=== PATIENT | male | born 1975 | race Caucasian/White ===

== ENCOUNTER 2016-05-01 08:30 | Outpatient (CLI) | payer BC | END 2016-05-01 08:31 | disposition home or self-care (01) | DX: L02.91 Cutaneous abscess, unspecified (principal) ==

== ENCOUNTER 2016-06-27 11:40 | Outpatient (CLI) | payer BC | END 2016-06-27 11:41 | DX: E78.5 Hyperlipidemia, unspecified (principal); E11.9 Type 2 diabetes mellitus without complications; I10 Essential (primary) hypertension ==

== ENCOUNTER 2017-01-28 21:39 | Emergency (ER) | payer BC ==
[2017-01-28] MEDS ORDERED: CLINDAMYCIN 150 MG CAPSULE PO STA (21:55)
[2017-01-28] MEDS ORDERED: CLINDAMYCIN 150 MG CAPSULE PO ONE (22:07)
--- NOTE | 2017-01-28 22:12 | ED Physician Documentation ---
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 No fevers or chills.) Review of Systems Constitutional: denies: Fever, Chills GI: denies: Nausea, Vomiting, Diarrhea, Hematemesis : denies: Dysuria, Frequency Skin: denies: Rash, Lesions PD PAST MEDICAL HISTORY - Past Medical History Past Medical History: Yes Cardiovascular: Hypertension, High cholesterol, Coronary artery disease Respiratory: Sleep apnea Neuro: None Endocrine/Autoimmune: Type 2 diabetes GI: None : None HEENT: None Psych: Depression, Anxiety Musculoskeletal: Osteoarthritis Derm: None - Past Surgical History Past Surgical History: Yes Cardiovascular: Coronary stent - Present Medications Home Medications: Ambulatory Orders Medication Instructions Recorded Confirmed FLUoxetine [PROzac] 40 mg PO DAILY 05/28/13 03/01/15 Gemfibrozil 600 mg PO DAILY 05/28/13 03/01/15 Metformin HCl [Fortamet] 2,000 mg PO DAILY 05/28/13 03/01/15 Metoprolol Succinate 50 mg PO DAILY 05/28/13 03/01/15 raNITIdine [Zantac] 300 mg PO DAILY 05/28/13 03/01/15 glipiZIDE [Glucotrol] 5 mg PO DAILY 08/31/13 03/01/15 Aspirin [Aspir 81] 81 mg PO DAILYWM 12/22/13 03/01/15 Atorvastatin Calcium 40 mg PO DAILY 02/08/14 03/01/15 Canagliflozin [Invokana] 300 mg PO DAILY 02/08/14 03/01/15 Clopidogrel Bisulfate [Plavix] 75 mg PO DAILY 02/08/14 03/01/15 Losartan/Hydrochlorothiazide 1 each PO DAILY 02/08/14 03/01/15 [Hyzaar 100-25 Tablet] Potassium Gluconate 500 mg PO DAILY 02/08/14 03/01/15 Clotrimazole 1 applic TP BID #30 g 03/02/15 Clindamycin [Cleocin] 300 mg PO Q6H 10 Days capsule 01/28/17 - Allergies Allergies/Adverse Reactions: Allergies Allergy/AdvReac Type Severity Reaction Status Date / Time metaproterenol sulfate * AdvReac Severe Hives Verified 01/28/17 21:48 [From Alupent] - Social History Does the pt smoke?: No Smoking Status: Never smoker Does the pt drink ETOH?: Yes Does the pt have substance abuse?: No - Immunizations Immunizations are current?: No Immunizations: TDAP current <10years - POLST Patient has POLST: No PD ED PE NORMAL - Vitals Vital signs reviewed: Yes - General General: Alert and oriented X 3, No acute distress - Abdomen Abdomen: Soft, Non tender - Derm Derm: Normal color, Warm and dry, Other (There is a tiny pointed sebaceous cyst on the lateral lower abdominal wall and medial to that there is a larger abscess with overlying cellulitis.) - Neuro Neuro: Alert and oriented X 3, Normal speech - Psych Psych: Normal mood, Normal affect Results - Vitals Vitals: Vital Signs - 24 hr 01/28/17 21:43 Temperature 36.4 C L Heart Rate 84 Respiratory 17 Rate Blood Pressure 148/86 H O2 Saturation 99 Oxygen O2 Source Room air - Labs Labs: Laboratory Tests 01/28/17 21:56 POC Whole Bld Glucose 329 H Procedures - Abscess I&D (location) Abd wall Preparation: Alcohol, Lidocaine 1% Incision: Loculations broken, Other (2 abscesses, but small sebaceous cyst was just stabbed with a scalpel after anesthetic, the larger one was incised and packed with half-inch packing and cultured.) Other: Pt tolerated well, Dressing applied, Antibiotic prescribed PD MEDICAL DECISION MAKING - ED course ED course: 41-year-old gentleman with history of uncontrolled diabetes presents with an abscess on the abdominal wall, there is no evidence of necrotizing infection, no systemic symptoms, no "pain out of proportion," and he declines pain medication. Incision and drainage was done and he was placed on clindamycin. 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 If antibiotic change is necessary we will call you. Return if worse in the meantime, especially if you develop increased pain, fevers, cannot keep down the medication. Otherwise follow-up with your physician in approximately 2-3 days. Your blood pressure was elevated today on check into the emergency department. This does not mean that you have hypertension, it is a common phenomenon to come to the emergency department and have elevated blood pressure. I recommend that she see your primary care physician within the week to have it rechecked when you are feeling better.
[2017-01-28 22:41] VITALS: BP 127/84
== END 2017-01-28 22:39 | disposition home or self-care (01) ==
LOC: ED 21:39
DX: L02.211 Cutaneous abscess of abdominal wall (principal); L03.311 Cellulitis of abdominal wall; L72.3 Sebaceous cyst; E11.65 Type 2 diabetes mellitus with hyperglycemia; Z79.84 Long term (current) use of oral hypoglycemic drugs; I10 Essential (primary) hypertension; Z79.82 Long term (current) use of aspirin
CPT/HCPCS: 10061; 87070; 87205; 99282; 99283; A9270

== ENCOUNTER 2017-06-05 22:42 | Emergency (ER) | payer BC ==
[2017-06-05] MEDS ORDERED: LIDOCAINE 1% 2 ML VIAL ONE (23:44)
[2017-06-06] MEDS ORDERED: INSULIN REGULAR HUMAN 100 UNIT/1 ML 10 ML MDV IVP STA ×4 (00:12→03:15)
[2017-06-06] MEDS ORDERED: SODIUM CHLORIDE 0.9% 1,000 ML IV ONE ×2 (00:12→01:39)
[2017-06-06 00:34] LABS: ALBUMIN 3.7 g/dL (3.2-5.5); ALBUMIN/GLOBULIN RATIO 1.2 (1.0-2.2); BILIRUBIN,TOTAL 0.6 mg/dL (0.2-1.0); CALCIUM 8.4 mg/dL (8.5-10.3); CREATININE 0.9 mg/dL (0.6-1.2); TOTAL PROTEIN 6.9 g/dL (6.7-8.2)
[2017-06-06 00:40] LABS: BASOPHILS # (AUTO) 0.2 10^3/uL (0.0-0.1); BASOPHILS % (AUTO) 2.7 %; EOSINOPHILS # (AUTO) 0.2 10^3/uL (0.0-0.7); HGB - HEMOGLOBIN 13.1 g/dL (14.0-18.0); LYMPHOCYTES # (AUTO) 1.5 10^3/uL (1.5-3.5); LYMPHOCYTES % (AUTO) 17.5 %; MEAN CORPUSCULAR HEMOGLOBIN 27.9 pg (27.0-31.0); MEAN CORPUSCULAR HGB CONC 33.9 g/dL (32.0-36.0); MEAN CORPUSCULAR VOLUME 82.3 fL (80.0-94.0); MEAN PLATELET VOLUME 8.7 fL (7.4-11.4); MONOCYTES # (AUTO) 0.4 10^3/uL (0.0-1.0); MONOCYTES % (AUTO) 5.2 %; NEUTROPHILS # (AUTO) 6.3 10^3/uL (1.5-6.6); NEUTROPHILS % (AUTO) 72.6 %; PLT - PLATELET COUNT 188 10^3/uL (130-450); RED BLOOD COUNT 4.72 10^6/uL (4.70-6.10); RED CELL DISTRIBUTION WIDTH 14.6 % (12.0-15.0); WHITE BLOOD COUNT 8.6 x10^3/uL (4.8-10.8)
--- NOTE | 2017-06-06 01:27 | ED Physician Documentation ---
PD HPI SKIN - Stated complaint Stated Complaint: ABSCESS L GROIN - Chief complaint Chief Complaint: Wound - History obtained from History obtained from: Patient - History of Present Illness Timing - onset: How many days ago (3) Timing - duration: Days (3) Timing - details: Gradual onset, Still present Location: Abdomen Quality / character: Painful, Discolored, Raised, Swelling. No: Draining Associated symptoms: Abd pain Contributing factors: Other (abscess to abdominal wall) Similar symptoms before: Diagnosis (abscess) Recently seen: Not recently seen - Additional information Additional information: 41-year-old morbidly obese male has developedAcute left lower quadrant abdominal pain with a tender fluctuant mass consistent with abscess that he has had previously in the same area and most recently on the other side in the same area.The patient has had a prior episode of Reed's gangrene. Review of Systems Constitutional: denies: Fever Eyes: denies: Decreased vision Ears: denies: Ear pain Nose: denies: Rhinorrhea / runny nose, Congestion Throat: denies: Sore throat Cardiac: denies: Chest pain / pressure, Palpitations Respiratory: denies: Dyspnea, Cough PD PAST MEDICAL HISTORY - Past Medical History Past Medical History: Yes Cardiovascular: Hypertension, High cholesterol, Coronary artery disease Respiratory: Sleep apnea Neuro: None Endocrine/Autoimmune: Type 2 diabetes GI: GERD : None HEENT: None Psych: Depression, Anxiety Musculoskeletal: Osteoarthritis Derm: None - Past Surgical History Past Surgical History: Yes Cardiovascular: Coronary stent - Present Medications Home Medications: Ambulatory Orders Medication Instructions Recorded Confirmed FLUoxetine [PROzac] 40 mg PO DAILY 05/28/13 03/01/15 Gemfibrozil 600 mg PO DAILY 05/28/13 03/01/15 Metformin HCl [Fortamet] 2,000 mg PO DAILY 05/28/13 03/01/15 Metoprolol Succinate 50 mg PO DAILY 05/28/13 03/01/15 raNITIdine [Zantac] 300 mg PO DAILY 05/28/13 03/01/15 glipiZIDE [Glucotrol] 5 mg PO DAILY 08/31/13 03/01/15 Aspirin [Aspir 81] 81 mg PO DAILYWM 12/22/13 03/01/15 Atorvastatin Calcium 40 mg PO DAILY 02/08/14 03/01/15 Canagliflozin [Invokana] 300 mg PO DAILY 02/08/14 03/01/15 Clopidogrel Bisulfate [Plavix] 75 mg PO DAILY 02/08/14 03/01/15 Losartan/Hydrochlorothiazide 1 each PO DAILY 02/08/14 03/01/15 [Hyzaar 100-25 Tablet] Potassium Gluconate 500 mg PO DAILY 02/08/14 03/01/15 Clotrimazole 1 applic TP BID #30 g 03/02/15 Clindamycin [Cleocin] 300 mg PO Q6H 10 Days capsule 01/28/17 Sulfamethoxazole/Trimethoprim 1 each PO BID #14 tablet 06/06/17 [Sulfamethoxazole-Tmp Ds Tablet] - Allergies Allergies/Adverse Reactions: Allergies Allergy/AdvReac Type Severity Reaction Status Date / Time nickel Allergy Rash Verified 06/05/17 22:50 metaproterenol sulfate * AdvReac Severe Hives Verified 06/05/17 22:50 [From Alupent] - Social History Does the pt smoke?: No Smoking Status: Never smoker Does the pt drink ETOH?: Yes Does the pt have substance abuse?: No - Immunizations Immunizations are current?: Yes Immunizations: TDAP current <10years - POLST Patient has POLST: No PD ED PE NORMAL - Vitals Vital signs reviewed: Yes (hypertensive ) - General General: Alert and oriented X 3, No acute distress, Well developed/nourished - HEENT HEENT: Atraumatic, PERRL - Respiratory Respiratory: No respiratory distress - Abdomen Abdomen: Soft, Other (There is an area about 6cm round over the left lower abdominal wall that is erythematous and tender. There is a central area of fluctuance about 1cm X 2xm that is especially tender. ) - Back Back: No CVA TTP, No spinal TTP - Derm Derm: Normal color, Warm and dry, No rash - Extremities Extremities: No deformity, No edema - Neuro Neuro: No motor deficit, No sensory deficit Eye Opening: Spontaneous Motor: Obeys Commands Verbal: Oriented GCS Score: 15 - Psych Psych: Normal mood, Normal affect Results - Vitals Vitals: Vital Signs - 24 hr 06/05/17 06/06/17 22:48 01:41 Temperature 36.6 C Heart Rate 96 81 Respiratory 18 17 Rate Blood Pressure 172/98 H 162/84 H O2 Saturation 95 97 Oxygen O2 Source Room air - Labs Labs: Laboratory Tests 06/05/17 06/05/17 06/05/17 23:40 23:55 23:55 WBC 8.6 RBC 4.72 Hgb 13.1 L Hct 38.8 L MCV 82.3 MCH 27.9 MCHC 33.9 RDW 14.6 Plt Count 188 MPV 8.7 Neut # 6.3 Lymph # 1.5 Jessamine # 0.4 Eos # 0.2 Baso # 0.2 H Absolute Nucleated RBC 0.00 Nucleated RBC % 0.0 Sodium 134 L Potassium 3.9 Chloride 100 L Carbon Dioxide 25 Anion Gap 9.0 BUN 18 Creatinine 0.9 Estimated GFR (MDRD) 94 Glucose 365 H POC Whole Bld Glucose 364 H Calcium 8.4 L Total Bilirubin 0.6 AST 22 ALT 27 Alkaline Phosphatase 115 Total Protein 6.9 Albumin 3.7 Globulin 3.2 Albumin/Globulin Ratio 1.2 Lipase 17 L 06/06/17 06/06/17 06/06/17 00:57 01:38 02:27 WBC RBC Hgb Hct MCV MCH MCHC RDW Plt Count MPV Neut # Lymph # Jessamine # Eos # Baso # Absolute Nucleated RBC Nucleated RBC % Sodium Potassium Chloride Carbon Dioxide Anion Gap BUN Creatinine Estimated GFR (MDRD) Glucose POC Whole Bld Glucose 300 H 273 H 285 H Calcium Total Bilirubin AST ALT Alkaline Phosphatase Total Protein Albumin Globulin Albumin/Globulin Ratio Lipase 06/06/17 03:53 WBC RBC Hgb Hct MCV MCH MCHC RDW Plt Count MPV Neut # Lymph # Jessamine # Eos # Baso # Absolute Nucleated RBC Nucleated RBC % Sodium Potassium Chloride Carbon Dioxide Anion Gap BUN Creatinine Estimated GFR (MDRD) Glucose POC Whole Bld Glucose 254 H Calcium Total Bilirubin AST ALT Alkaline Phosphatase Total Protein Albumin Globulin Albumin/Globulin Ratio Lipase Procedures - Abscess I&D (location) abdominal wall Preparation: Chlorhexadine, Lidocaine 1% Incision: Incised with scalpel, Purulent drainage, Loculations broken, Irrigated , Culture obtained Other: Pt tolerated well, Dressing applied, Antibiotic prescribed PD MEDICAL DECISION MAKING - ED course Complexity details: reviewed old records, reviewed results, re-evaluated patient , considered differential, d/w patient ED course: 41-year-old morbidly obese diabetic male presents today with an abscess to his left lower abdominal wall. The abscess is incised and drained and the patient tolerates this satisfactorily. He is noted to have a blood sugar over 386 and I have offered to provide hydration and insulin to bring the sugar down and we worked on it here in the emergency department for several hours giving 2 L of saline and a total of 25 units of insulin this did provide some relief for the patient with his sugar coming down into the 250 range. I indicated that the our goal was to have his sugar under 200 and he indicated that he usually lives in the range of about 250 and over. I suspect he will have a difficult time getting his sugar under that range without insulin and he will follow-up with his primary care doctor. He is unwilling to stay longer today for glucose control. 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
[2017-06-06] MEDS ORDERED: ceFAZolin 3 GM/20 ML SYRINGE IVP ONE (01:45)
[2017-06-06] MEDS ORDERED: ceFAZolin 3 GM/20 ML SYRINGE ONE (02:06)
[2017-06-06 04:15] VITALS: BP 180/88
== END 2017-06-06 04:15 | disposition home or self-care (01) ==
LOC: ED 22:42
DX: L02.211 Cutaneous abscess of abdominal wall (principal); E11.65 Type 2 diabetes mellitus with hyperglycemia; I10 Essential (primary) hypertension; E78.00 Pure hypercholesterolemia, unspecified; I25.10 Atherosclerotic heart disease of native coronary artery without angina pectoris; Z95.5 Presence of coronary angioplasty implant and graft; Z79.84 Long term (current) use of oral hypoglycemic drugs
CPT/HCPCS: 10060; 36415; 80053; 83690; 85025; 87070; 87077; 87181; 87205; 96361; 96374; 99284; J1815

== ENCOUNTER 2017-11-20 08:00 | Outpatient (CLI) | payer BC, OTHER ==
[2017-11-20 14:09] LABS: ALBUMIN 4.1 g/dL (3.2-5.5); ALBUMIN/GLOBULIN RATIO 1.2 (1.0-2.2); ALKALINE PHOSPHATASE 104 IU/L (42-121); ALT ALANINE AMINOTRANSFERASE 34 IU/L (10-60); AST ASPARTATE AMINOTRANSFERASE 27 IU/L (10-42); BILIRUBIN,TOTAL 0.6 mg/dL (0.2-1.0); BUN - BLOOD UREA NITROGEN 17 mg/dL (6-20); CALCIUM 9.4 mg/dL (8.5-10.3); CARBON DIOXIDE - CO2 28 mmol/L (21-32); CHLORIDE 96 mmol/L (101-111); CHOL/HDL RATIO 5.2 (<5.0); CHOLESTEROL 151 mg/dL; CREATININE 0.9 mg/dL (0.6-1.2); GFR - MDRD 94 (>89); GLUCOSE 260 mg/dL (70-100); HDL CHOLESTEROL 29 mg/dL; LDL CHOLESTEROL,CALCULATED 66 mg/dL; LDL/HDL RATIO 2.3 (<3.6); SODIUM 133 mmol/L (135-145); TOTAL PROTEIN 7.6 g/dL (6.7-8.2); VLDL CHOLESTEROL 56 mg/dL
[2017-11-20 14:37] LABS: HB2 TOTAL 15.3 g/dL; HEMOGLOBIN A1C 1.64 g/dL
== END 2017-11-20 08:01 | disposition home or self-care (01) ==
LOC: LAB.WCP 08:00
PROVIDERS: ATTEND Physician Assistant Medical
DX: E11.59 Type 2 diabetes mellitus with other circulatory complications (principal)
CPT/HCPCS: 36415; 80053; 80061; 83036; 83721

== ENCOUNTER 2018-03-21 18:01 | Outpatient (CLI) | payer OTHER | END 2018-03-21 18:02 | disposition critical access hospital (66) | LOC: EMS 18:01 | PROVIDERS: ATTEND Surgery | DX: R42 Dizziness and giddiness (principal); R11.0 Nausea; R73.09 Other abnormal glucose | CPT/HCPCS: A0425; A0427 ==

== ENCOUNTER 2018-05-31 07:19 | Outpatient (CLI) | payer OTHER | END 2018-05-31 07:20 | disposition short-term general hospital (02) | LOC: EMS 07:19 | PROVIDERS: ATTEND Surgery | DX: R07.89 Other chest pain (principal) | CPT/HCPCS: A0425; A0427 ==

== ENCOUNTER 2018-08-07 23:14 | Emergency (ER) | payer OTHER ==
[2018-08-07 23:27] VITALS: BP 165/92
--- NOTE | 2018-08-08 00:22 | ED Physician Documentation ---
History of Present Illness - Stated complaint Stated Complaint: DIABETIC/RT TOENAIL FALLING OFF - Chief complaint Chief Complaint: Ext Problem - History obtained from History obtained from: Patient - History of Present Illness Timing: Unknown (noticed today) Pain level now: 0 - Additonal information Additional information: Earlier this evening, patient noticed right great toe nail had partially avulsed. It is raised off of the nailbed with dried blood underneath the nail. He denies any pain, and has diabetic neuropathy and thus has minimal sensation in toes. does not recall any injury Review of Systems Constitutional: denies: Fever Musculoskeletal: denies: Extremity pain, Joint pain, Joint swelling, Pain with weight bearing PD PAST MEDICAL HISTORY - Past Medical History Past Medical History: Yes Cardiovascular: Hypertension, High cholesterol, Coronary artery disease Respiratory: Sleep apnea Neuro: None Endocrine/Autoimmune: Type 2 diabetes GI: GERD : None HEENT: None Psych: Depression, Anxiety Musculoskeletal: Osteoarthritis Derm: None - Past Surgical History Past Surgical History: Yes Cardiovascular: Coronary stent - Present Medications Home Medications: Ambulatory Orders Medication Instructions Recorded Confirmed FLUoxetine [PROzac] 40 mg PO DAILY 05/28/13 03/01/15 Gemfibrozil 600 mg PO DAILY 05/28/13 03/01/15 Metformin HCl [Fortamet] 2,000 mg PO DAILY 05/28/13 03/01/15 Metoprolol Succinate 50 mg PO DAILY 05/28/13 03/01/15 raNITIdine [Zantac] 300 mg PO DAILY 05/28/13 03/01/15 glipiZIDE [Glucotrol] 5 mg PO DAILY 08/31/13 03/01/15 Aspirin [Aspir 81] 81 mg PO DAILYWM 12/22/13 03/01/15 Atorvastatin Calcium 40 mg PO DAILY 02/08/14 03/01/15 Canagliflozin [Invokana] 300 mg PO DAILY 02/08/14 03/01/15 Clopidogrel Bisulfate [Plavix] 75 mg PO DAILY 02/08/14 03/01/15 Losartan/Hydrochlorothiazide 1 each PO DAILY 02/08/14 03/01/15 [Hyzaar 100-25 Tablet] Potassium Gluconate 500 mg PO DAILY 02/08/14 03/01/15 Clotrimazole 1 applic TP BID #30 g 03/02/15 Clindamycin [Cleocin] 300 mg PO Q6H 10 Days capsule 01/28/17 Sulfamethoxazole/Trimethoprim 1 each PO BID #14 tablet 06/06/17 [Sulfamethoxazole-Tmp Ds Tablet] Clindamycin HCl [Clindamycin 300MG 300 mg PO Q6H #28 capsule 08/08/18 CAP] - Allergies Allergies/Adverse Reactions: Allergies Allergy/AdvReac Type Severity Reaction Status Date / Time nickel Allergy Rash Verified 03/21/18 18:25 metaproterenol sulfate * AdvReac Severe Hives Verified 03/21/18 18:25 [From Alupent] Sulfa (Sulfonamide AdvReac Unknown Verified 08/07/18 23:27 Antibiotics) - Social History Does the pt smoke?: No Smoking Status: Never smoker Does the pt drink ETOH?: Yes Does the pt have substance abuse?: No - Immunizations Immunizations are current?: Yes Immunizations: TDAP current <10years - POLST Patient has POLST: No PD ED PE NORMAL - Vitals Vital signs reviewed: Yes - General General: Alert and oriented X 3, No acute distress, Well developed/nourished - Extremities Extremities: Other (Left great toe: nail is raised off of nailbed with dried blood between nail and bed. Nail is firmly and completely attached at proximal nail fold as well as lateral nail folds proximally. There is moderate amount of dried, crusted blood under nail which was partially removed with a curette. No evidence of laceration and only mild erythema and swelling.) Results - Vitals Vitals: Oxygen O2 Source Room air PD MEDICAL DECISION MAKING - ED course Complexity details: considered differential, d/w patient ED course: Antibiotic for prophylaxis, with minimal signs s/o infection. Advised that he will possibly lose this nail, but it is firmly anchored proximal nail fold and thus will leave in place at this time. 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 Alternatively, you can follow up with your primary care provider. Discharge Date/Time: 08/08/18 00:54
[2018-08-08] MEDS ORDERED: CLINDAMYCIN 150 MG CAPSULE PO STA (00:42)
== END 2018-08-08 00:54 | disposition home or self-care (01) ==
LOC: ED 23:14
DX: S99.921A Unspecified injury of right foot, initial encounter (principal); S91.111A Laceration without foreign body of right great toe without damage to nail, initial encounter; X58.XXXA Exposure to other specified factors, initial encounter; E11.40 Type 2 diabetes mellitus with diabetic neuropathy, unspecified; I10 Essential (primary) hypertension; E78.00 Pure hypercholesterolemia, unspecified; I25.10 Atherosclerotic heart disease of native coronary artery without angina pectoris; Z95.5 Presence of coronary angioplasty implant and graft; Z79.82 Long term (current) use of aspirin
CPT/HCPCS: 99283; A9270

== ENCOUNTER 2018-09-15 11:32 | Outpatient (CLI) | payer OTHER ==
[2018-09-15 19:21] LABS: ALBUMIN/GLOBULIN RATIO 1.2 (1.0-2.2); ALKALINE PHOSPHATASE 93 IU/L (42-121); ALT ALANINE AMINOTRANSFERASE 34 IU/L (10-60); AST ASPARTATE AMINOTRANSFERASE 24 IU/L (10-42); BILIRUBIN,TOTAL 0.5 mg/dL (0.2-1.0); BUN - BLOOD UREA NITROGEN 13 mg/dL (6-20); CALCIUM 9.1 mg/dL (8.5-10.3); CARBON DIOXIDE - CO2 25 mmol/L (21-32); CHLORIDE 99 mmol/L (101-111); CHOLESTEROL 157 mg/dL; CREATININE 0.8 mg/dL (0.6-1.2); GFR - MDRD 107 (>89); GLUCOSE 303 mg/dL (70-100); HDL CHOLESTEROL 26 mg/dL; LDL CHOLESTEROL,CALCULATED 78 mg/dL; SODIUM 135 mmol/L (135-145); TOTAL PROTEIN 7.3 g/dL (6.7-8.2); VLDL CHOLESTEROL 53 mg/dL
[2018-09-15 19:48] LABS: HB2 TOTAL 14.9 g/dL; HEMOGLOBIN A1C 1.63 g/dL; HEMOGLOBIN A1C % 12.2 % (4.6-6.2)
== END 2018-09-15 11:33 | disposition home or self-care (01) ==
LOC: LAB.WCP 11:32
PROVIDERS: ATTEND Physician Assistant Medical
DX: E11.59 Type 2 diabetes mellitus with other circulatory complications (principal)
CPT/HCPCS: 36415; 80053; 80061; 83036; 83721

== ENCOUNTER 2020-11-23 00:06 | Outpatient (CLI) | payer SELFPAY | END 2020-11-23 00:07 | disposition EMS.NT | LOC: EMS 00:06 | DX: Z03.89 Encounter for observation for other suspected diseases and conditions ruled out (principal) ==

== ENCOUNTER 2020-11-25 11:45 | Outpatient (CLI) | payer OTHER | END 2020-11-25 11:46 | disposition short-term general hospital (02) | LOC: EMS 11:45 | DX: S91.101A Unspecified open wound of right great toe without damage to nail, initial encounter (principal); W10.9XXA Fall (on) (from) unspecified stairs and steps, initial encounter; Y93.89 Activity, other specified | CPT/HCPCS: A0425; A0427 ==

== ENCOUNTER 2021-12-14 18:51 | Emergency (ER) | payer OTHER ==
[2021-12-14 19:02] VITALS: BP 176/90
--- NOTE | 2021-12-14 19:33 | ED Physician Documentation ---
History of Present Illness - Stated complaint Stated Complaint: EAR PX - Chief complaint Chief Complaint: Heent - Additonal information Additional information: 46-year-old male presents emergency department for evaluation of acute right ear pain. He was traveling in the car with his when they were descending from elevation. He tried to pop his ears using a Valsalva maneuver and then had sudden pain in the right ear. There has been no drainage. He has had muffled hearing since. He has not gone swimming recently. Denies use of Q-tips. No recent cough cold or congestion. He does have a history of diabetes and morbid obesity Review of Systems Constitutional: reports: Reviewed and negative Eyes: reports: Reviewed and negative Ears: reports: Ear pain. denies: Loss of hearing, Drainage/discharge Nose: reports: Reviewed and negative Throat: reports: Reviewed and negative Cardiac: reports: Reviewed and negative Respiratory: reports: Reviewed and negative GI: reports: Reviewed and negative PD PAST MEDICAL HISTORY - Past Medical History Cardiovascular: Hypertension, High cholesterol, Coronary artery disease, CT Respiratory: Sleep apnea, CPAP use Neuro: Peripheral neuropathy Endocrine/Autoimmune: Type 2 diabetes GI: GERD : None, Nocturia HEENT: None Psych: Depression, Anxiety Musculoskeletal: Osteoarthritis Derm: None - Past Surgical History Past Surgical History: Yes Cardiovascular: Coronary stent - Present Medications Home Medications: Ambulatory Orders Medication Instructions Recorded Confirmed FLUoxetine [PROzac] 40 mg PO DAILY 05/28/13 08/28/18 Metformin HCl [Fortamet] 2,000 mg PO DAILY 05/28/13 08/28/18 Metoprolol Succinate 50 mg PO BID 05/28/13 08/28/18 gemfibroziL [Gemfibrozil] 600 mg PO DAILY 05/28/13 08/28/18 Aspirin [Aspir 81] 81 mg PO DAILYWM 12/22/13 08/28/18 Atorvastatin Calcium 40 mg PO DAILY 02/08/14 08/28/18 Losartan/Hydrochlorothiazide 1 each PO DAILY 02/08/14 08/28/18 [Hyzaar 100-25 Tablet] Glimepiride 4 mg PO DAILY 08/28/18 08/28/18 Isosorbide Mononitrate [Isosorbide 120 mg PO DAILY 08/28/18 08/28/18 Mononitrate ER] Nitroglycerin [Nitrostat] 0.4 mg SL Q5MIN PRN 08/28/18 08/28/18 Pantoprazole Sodium 40 mg PO DAILY 08/28/18 08/28/18 Prasugrel HCl 10 mg PO DAILY 08/28/18 08/28/18 Ofloxacin [Ofloxacin Otic drops] 5 ml OT BID #5 ml 12/14/21 - Allergies Allergies/Adverse Reactions: Allergies Allergy/AdvReac Type Severity Reaction Status Date / Time nickel Allergy Rash Verified 12/14/21 19:00 metaproterenol sulfate * AdvReac Severe Hives Verified 12/14/21 19:00 [From Alupent] Sulfa (Sulfonamide AdvReac Unknown Verified 12/14/21 19:00 Antibiotics) - Social History Does the pt smoke?: No Smoking Status: Former smoker Does the pt drink ETOH?: Yes Does the pt have substance abuse?: No - Immunizations Immunizations are current?: Yes Immunizations: TDAP current <10years - POLST Patient has POLST: No PD ED PE NORMAL - General General: Alert and oriented X 3. No: Well developed/nourished (Morbidly obese) - HEENT HEENT: Moist mucous membranes, Pharynx benign, Dentition benign, Other (Right EAC moderately erythematous and swollen without exudate. Right TM fully intact. Left EAC and TM unremarkable) - Neck Neck: Supple, no meningeal sign, No adenopathy Results - Vitals Vitals: Vital Signs - 24 hr 12/14/21 19:00 Temperature 36.5 C Heart Rate 100 Respiratory 22 Rate Blood Pressure 176/90 H O2 Saturation 92 Oxygen O2 Source Room air PD MEDICAL DECISION MAKING - ED course Complexity details: considered differential, d/w patient ED course: 46-year-old male presents emergency department for evaluation of acute right ear pain and muffled hearing when attempting a Valsalva maneuver to clear his ears while descending from elevation at [place]. On exam his TM is fully intact without effusion or findings to suggest acute otitis media. The right ear canal is however swollen and erythematous without drainage. Though he denies use of Q-tips I suspect a mild early otitis externa. He will be started on ofloxacin drops. Advised ibuprofen. Emergent return precautions were discussed for failure symptoms to resolve Departure - Departure Disposition: Home, Self Care Clinical Impression: Right otitis externa Qualifiers: Otitis externa type: unspecified type Chronicity: acute Qualified Code(s): H60.501 - Unspecified acute noninfective otitis externa, right ear Condition: Stable Record reviewed to determine appropriate education?: Yes Instructions: ED Otitis Externa Prescriptions: Ofloxacin [Ofloxacin Otic drops] 5 ml OT BID #5 ml Comments: Edward you are seen today in the emergency department for sudden pain in the right ear as you were at elevation and tried to pop your ear. Your eardrums are fully intact. There is no perforation. However the right ear canal is fairly swollen and red. I have sent a prescription for ofloxacin and an antibiotic drop to the [facility] in [place]. Please place 5 drops in the right ear twice daily for the next week. I would like you to take ibuprofen 600 mg with food 2-3 times a day for ear discomfort. With the antibiotics and the ibuprofen I would expect improved symptoms in the right ear over 48 to 72 hours. Return to the emergency department for fevers, worsening pain, inability to fully open your mouth, milky drainage from your ear or any external ear swelling
== END 2021-12-14 19:40 | disposition home or self-care (01) ==
LOC: ED 18:51
DX: H60.501 Unspecified acute noninfective otitis externa, right ear (principal); Z87.891 Personal history of nicotine dependence
CPT/HCPCS: 99282